=== PATIENT | male | born 1960 | race Caucasian/White ===

== ENCOUNTER 2021-02-25 12:07 | Emergency (ER) | payer BC, SELFPAY ==
--- NOTE | ~2021-02-25 | XR_ITS ---
EXAMINATION: XR forearm RT 2V DATE: 02/25/2021 13:07 INDICATION: Right forearm laceration. TECHNIQUE: 2 views of right forearm on 3 radiographs were obtained. COMPARISON: None. FINDINGS: Bone alignment is normal. No fracture. Joint spaces are normal. No elbow joint effusion. Th ere is a laceration of the posterior proximal forearm. Soft tissue gas is noted. IMPRESSION: 1. No fracture or radiopaque foreign body. Reviewed, dictated and finalized at location B.
[2021-02-25 12:20] VITALS: BP 113/72; PULSE 45; RESP 12; TEMP 36.4; O2SAT 99
--- NOTE | 2021-02-25 12:30 | ECG_ITS ---
Measurements Intervals [place] Rate: P: MD: QRS: QRSD: T: QT: QTc: Interpretive Statements SINUS BRADYCARDIA ABNORMAL ECG Electronically Signed On 02-28-2021 14:36:07 CDT by Curtis Celis D.O.
[2021-02-25] MEDS: HYDROcodone/acetaminophen (*CRX) 5-325 MG TABLET 1 TAB PO (12:41)
[2021-02-25] MEDS: Please add drug allergy info to patient profile. XX (12:48)
--- NOTE | 2021-02-25 12:51 | ED.GENADULT ---
HPI - General Adult General Chief complaint: Fall Stated complaint: fall 5 ft from ladder/arm injury Time Seen by Provider: 02/25/21 12:21 Source: patient History of Present Illness HPI narrative: Patient is a 60 y/o male complaining of right arm pain after a fall. He states that he was about 5 feet up on a ladder working on a shed. The ladder fell to the side and he fell with the ladder. His right arm was impaled by a fence. He has aching pain and rates his pain as 8/10. There is no alleviating or exacerbating factor. He denies hitting his head or passing out. He has no headache, neck pain, back pain chest pain or abdominal pain. He is not sure when he had his last Tetanus shot. Related Data Allergies Allergy/AdvReac Type Severity Reaction Status Date / Time No Known Allergies Allergy Verified 02/25/21 12:39 Review of Systems Constitutional: Constitutional: Denies chills, Denies fever(s), Denies headache(s) and Denies weakness Eyes: Eyes: Denies blurry vision ENT: Denies headache(s) and Denies neck pain Cardiovascular: Cardiovascular: Denies chest pain and Denies dyspnea Respiratory: Respiratory: Denies cough and Denies dyspnea Gastrointestinal: Gastrointestinal: Denies abdominal pain, Denies diarrhea, Denies nausea and Denies vomiting Genitourinary: Genitourinary: Denies hematuria and Denies dysuria Musculoskeletal: Musculoskeletal: Denies back pain, Denies neck pain and Reports other (right arm pain) Neurologic: Denies headache(s) and Denies weakness [facility] Social History Social History Gender identity (if verbalized by the patient): Male Exam Const: General: no acute distress and well developed Orientation/consciousness: oriented to person, oriented to place, oriented to time and patient oriented x3 HENMT: Head: normocephalic Ears: external ears normal General nose exam: Normal external nose present Eyes: General: appearance normal, both eyes and all related structures Conjunctivae: conjunctivae normal Neck: Neck: normal visual inspection and full ROM Chest: Chest palpation & inspection: normal inspection of the chest and no tenderness Resp: Effort & Inspection: normal respiratory effort Auscultation: clear to auscultation bilaterally Cardio: Rate: bradycardic Rhythm: regular rhythm GI: GI Palp: No abdominal tenderness and Yes Soft to palpation Skin: General skin exam: normal color and turgor normal Trauma: laceration (laceration on right proximal forearm and distal forearm) Neuro: General: oriented to person, oriented to place, oriented to time and patient oriented x3 Cognition (Neuro): normal cognition Extrem: General: normal to inspection, full ROM and no pedal edema Right upper extremity: elbow/forearm tenderness Psych: Appearance: grossly normal Mental Status: mental status grossly normal Affect: normal affect Course Consultations Consultation #1: Discussed with Dr. Santos (ortho), who recommend wound irrigation and closure and he will follow up. Date: 02/25/21 Time: 14:32 Vital Signs Vital signs: Vital Signs Temperature 36.4 C 02/25/21 12:20 Pulse Rate 45 L 02/25/21 12:20 Respiratory Rate 12 02/25/21 12:20 Blood Pressure 113/72 02/25/21 12:20 Pulse Oximetry 99 02/25/21 12:20 Temperature 36.4 C 02/25/21 12:20 Pulse Rate 46 L 02/25/21 15:50 Respiratory Rate 12 02/25/21 15:50 Blood Pressure 116/66 02/25/21 15:50 Pulse Oximetry 100 02/25/21 15:50 Procedures Laceration Laceration 1: Date: 02/25/21 Time: 15:10 Site: upper extremity (proximal right forearm) Side (If applicable): right Size (cm): 5 Description: stellate Depth: involves muscle layer Local Anesthetic: lidocaine 1% and with epi Amount of anesthesia used (mL): 8 Pre-repair: wound explored and irrigated ====== Skin Level ====== Skin layer closed with
[2021-02-25] MEDS: TETANUS,DIPHTHERIA,AC PERTUSSIS ADULT (0.5 ML) BOOSTRIX IM (12:52)
[2021-02-25 12:58] LABS: Anion Gap 6 mmol/L (8-16); Blood Urea Nitrogen 29 mg/dL (9-20); Calcium 9.2 mg/dL (8.4-10.2); Carbon Dioxide 26 mmol/L (22-30); Chloride 107 mmol/L (98-107); Estimated CRCL calculation 64 ml/min; Estimated Glomerular Filt Rate 56; Glucose 127 mg/dL (75-110); Potassium 3.7 mmol/L (3.4-5.0); Sodium 139 mmol/L (137-145)
[2021-02-25 12:59] LABS: Basophils Absolute Auto 0.1 K/mm3 (0.0-0.1); Basophils Percent Auto 0.9 % (0.2-1.2); Eosinophils Absolute Auto 0.1 K/mm3 (0-0.3); Eosinophils Percent Auto 1.4 % (0-4.4); Hematocrit 36.7 % (42.0-52.0); Immature Granulocyte Absolute 0.02 K/mm3 (0.00-0.031); Immature Granulocyte Percent A 0.3 % (0-0.5); Lymphocytes Absolute Auto 1.65 K/mm3 (0.9-3.2); Lymphocytes Percent Auto 25.3 % (18.3-44.2); Mean Corpuscular HGB Conc 32.7 g/dl (32-36); Mean Corpuscular Hemoglobin 26.5 pg (26-34); Mean Corpuscular Volume 81.2 fl (80-100); Mean Platelet Volume 8.9 fl (7.4-10.4); Monocytes Absolute Auto 0.7 K/mm3 (0.1-0.6); Monocytes Percent Auto 10.1 % (2.6-8.5); Neutrophils Absolute Auto 4.1 K/mm3 (1.3-6.7); Platelet Count Result 239 k/mm3 (150-375); Red Blood Count 4.52 M/mm3 (4.6-6.20); Red Cell Distribution Width 14.5 % (11.5-14.5); White Blood Count 6.5 K/mm3 (4.5-10.0)
[2021-02-25 13:09] VITALS: BP 118/73; PULSE 40; RESP 13; O2SAT 100
--- NOTE | 2021-02-25 13:11 | PC.NURSE ---
Called lab to add on TSH. spoke with Rosa Isela.
[2021-02-25] MEDS: ceFAZolin 2 GM/D5W 50 ML 2 GM/50 ML BAG IVPB (13:43)
[2021-02-25 14:52] VITALS: BP 119/64; PULSE 42; RESP 15; O2SAT 97
[2021-02-25 15:50] VITALS: BP 116/66; PULSE 46; RESP 12; O2SAT 100
== END 2021-02-25 15:54 | disposition home or self-care (01) ==
PROVIDERS: Emergency Provider Emergency Medicine
DX: S51.811A Laceration without foreign body of right forearm, initial encounter (principal); Z23 Encounter for immunization; R00.1 Bradycardia, unspecified; W11.XXXA Fall on and from ladder, initial encounter
CPT/HCPCS: 12004; 36415; 73090; 80048; 84443; 85025; 90471; 90715; 93005; 96365; 99284; A9270; J0690

== ENCOUNTER 2023-09-05 08:11 | Emergency (ER) | payer BC, SELFPAY ==
[2023-09-05 08:18] VITALS: BP 108/61; PULSE 55; RESP 18; TEMP 36.6; O2SAT 99
--- NOTE | 2023-09-05 08:46 | ED.EXTPRO ---
HPI - Extremity Problem General Chief complaint: Extremity Problem,Nontraumatic Stated complaint: right knee tenderness Time Seen by Provider: 09/05/23 08:36 Source: patient and RN notes reviewed Mode of arrival: ambulatory Limitations: no limitations History of Present Illness HPI Narrative: Patient presents today with right knee pain. States he has started experiencing occasional twinges throughout the week, but the pain has now become constant. Pain increases with flexion of the knee. He has tried ice, Excedrin, and wrapping the knee, with minimal relief. He also reports noting some swelling for the last couple of days. Denies numbness or tingling in the leg or foot. Denies any traumatic injury. 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 Related Data Allergies Allergy/AdvReac Type Severity Reaction Status Date / Time No Known Allergies Allergy Verified 09/05/23 08:16 Review of Systems Review of Systems: CONSTITUTIONAL: Denies body aches, fever, chills, or sweats. EYES: Denies visual changes, redness, or discharge. ENT: Denies rhinorrhea, congestion, sore throat, or otalgia. CARDIOVASCULAR: Denies chest pain, palpitations, or edema. RESPIRATORY: Denies cough or dyspnea. GASTROINTESTINAL: Denies abdominal pain, nausea, vomiting, or diarrhea. GENITOURINARY: Denies dysuria or hematuria. SKIN: Denies rash, itching, or wounds. MUSCULOSKELETAL: Denies back pain, or myalgia.+ right knee pain NEUROLOGIC: Denies headache, numbness, tingling, or weakness. PSYCH: Denies depression or anxiety. PMFSH Social History Social History Gender identity (if verbalized by the patient): Male Comments At time of signature, I have reviewed and agree with nursing past medical, surgical, social and family history unless otherwise noted. Please see nursing chart for further information. There is no relevant family history pertinent to the presenting complaint Exam Narrative: GENERAL: Well-appearing, well-nourished, and in no acute distress. HEAD: Normocephalic, atraumatic. EYES: EOMI. No redness or drainage. Conjunctivae normal. ENT: Mucous membranes pink and moist. NECK: Normal AROM. CHEST: No respiratory distress. EXTREMITIES: Right knee: Tenderness to the medial joint line. No tenderness laterally. No tenderness to the posterior knee. No tenderness to the patella or patellar tendon. No abnormal movement of the patella. Pain with flexion and internal rotation. Mild edema about the knee. Distal sensation intact. Capillary refill normal. Dorsiflexion and plantar flexion strong against resistance. SKIN: Warm, dry, no rash. Capillary refill normal. Normal skin turgor. NEURO: No focal deficits. Alert and oriented x3. Gait steady. PSYCH: Normal affect. No signs of depression or anxiety. Course Course Level of Care: Express Care Visit Vital Signs Vital signs: Vital Signs Temperature 98 F 09/05/23 08:18 Pulse Rate 55 L 09/05/23 08:18 Respiratory Rate 18 09/05/23 08:18 Blood Pressure 108/61 09/05/23 08:18 Pulse Oximetry 99 09/05/23 08:18 Oxygen Delivery Room Air 09/05/23 08:18 Temperature 98 F 09/05/23 08:18 Pulse Rate 55 L 09/05/23 08:18 Respiratory Rate 18 09/05/23 08:18 Blood Pressure 108/61 09/05/23 08:18 Pulse Oximetry 99 09/05/23 08:18 Oxygen Delivery Room Air 09/05/23 08:18 Reviewed MDM - Extremity (Nontraumatic) MDM Narrative Medical decision making narrative: As patient has not had a traumatic injury, x-ray is not indicated at this time. Will place patient on Medrol Dosepak to help with swelling and inflammation. Will refer him to Orthopedics for follow-up. Patient agrees with plan. Anticipatory guidance given. Differential Diagnosis Differential diagnosis: Likely other (Arthritis, ligamentous injury, meniscus injury, bursitis) Critical Care Time Critical Care Time Critical Care Time: No Discharge Ewa
== END 2023-09-05 08:55 | disposition home or self-care (01) ==
PROVIDERS: Emergency Provider Nurse Practitioner
DX: M25.561 Pain in right knee (principal); K21.9 Gastro-esophageal reflux disease without esophagitis
CPT/HCPCS: 99213; G0463

== ENCOUNTER 2025-05-24 09:57 | Outpatient (CLI) | payer MEDICARE, SELFPAY ==
--- NOTE | ~2025-05-24 | XR_ITS ---
Left Shoulder Technique: AP and axillary views were obtained. Clinical History: Pain Findings: No fracture or dislocation is seen. Osseous alignment is anatomic. The glenohumeral joint i s intact. There is mild AC joint degenerative change. Soft tissues are unremarkable. Impression: Mild AC joint degenerative change. Reviewed, dictated and finalized at location . Impression: Mild AC joint degenerative change.
== END 2025-05-24 09:58 | disposition home or self-care (01) ==
LOC: MICIMG 09:58
PROVIDERS: PCP Family Medicine; Visit Provider Family Medicine
DX: M19.012 Primary osteoarthritis, left shoulder (principal)
CPT/HCPCS: 73030

== ENCOUNTER 2025-10-25 09:58 | Outpatient (CLI) | payer MEDICARE, SELFPAY ==
--- NOTE | 2025-10-25 11:00 | NEURO_ITS ---
Impression: # Non-diabetic complains of numbness of lower extremities. ? 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 ? # Clinical correlation recommended. Nerve Conduction Studies ?Stim Site NR Peak (ms) P-T Amp (?V) Site1 Site2 Delta-P (ms) Dist (cm) Justen (m/s) Left Sup Fibular Anti Sensory (Ant Lat Mall)??? NO RESPONSE 14 cm NR 14 cm Ant Lat Mall 16.0 Right Sup Fibular Anti Sensory (Ant Lat Mall)??? NO RESPONSE 14 cm NR 14 cm Ant Lat Mall 16.0 Left Sural Anti Sensory (Lat Mall)??? NO RESPONSE Calf NR Calf Lat Mall 16.0 Right Sural Anti Sensory (Lat Mall) Calf ? 4.7 7.5 Calf Lat Mall 4.7 16.0 34 ?Stim Site NR Onset (ms) O-P Amp (mV) Site1 Site2 Delta-0 (ms) Dist (cm) Justen (m/s) Left Peroneal Motor (Vastus Med) Ankle ? 4.4 0.7 Popit Ankle 12.5 45.0 36 Popit ? 16.9 1.5 Right Peroneal Motor (Vastus Med) Ankle ? 4.2 2.5 Popit Ankle 12.1 45.0 37 Popit ? 16.3 2.0 Left Tibial Motor (Abd Bird Brev) Ankle ? 4.1 0.3 Knee Ankle 15.1 47.0 31 Knee ? 19.2 0.1 Right Tibial Motor (Abd Bird Brev) Ankle ? 4.1 1.6 Knee Ankle 15.3 47.0 31 Knee ? 19.4 0.8 F Wave Studies ?NR F-Lat (ms) L-R F-Lat (ms) Left Peroneal (Mrkrs) (EDB)??? NO RESPONSE ? 69.83 0.00 Right Peroneal (Mrkrs) (EDB) ? 69.83 0.00 Left Tibial (Mrkrs) (Abd Hallucis) ? 54.34 3.63 Right Tibial (Mrkrs) (Abd Hallucis) ? 57.97 3.63 Electromyography ?Side Muscle Nerve Root Ins Act Fibs Amp Dur Recrt Comment Right AntTibialis Dp Br Fibular L4-5 Nml Nml Decr >12ms +1 Left AntTibialis Dp Br Fibular L4-5 Nml Nml Decr >12ms +1 Right Ext Dig Brev Dp Br Fibular L5, S1 Nml Nml Decr >12ms +2 Left Ext Dig Brev Dp Br Fibular L5, S1 Nml Nml Decr >12ms +2 Right Fibularis Long Sup Br Fibular L5-S1 Nml Nml Decr >12ms +1 Left Fibularis Long Sup Br Fibular L5-S1 Nml Nml Decr >12ms +1 Right Flex Dig Long Tibial L5-S2 Nml Nml Decr >12ms +1 Left Flex Dig Long Tibial L5-S2 Nml Nml Decr >12ms +1 Right Gastroc Tibial S1-2 Nml Nml Decr >12ms +1 Left Gastroc Tibial S1-2 Nml Nml Decr >12ms +1 Right QuadratusFem QuadFemoris L4-5, S1 Nml Nml Nml Nml Nml Left QuadratusFem QuadFemoris L4-5, S1 Nml Nml Nml Nml Nml
--- OUTSIDE RECORDS SUMMARY | 2025-10-25 11:28 | XMS_ITS | Encounter Summary ---
Author Organization [facility] Address 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
--- OUTSIDE RECORDS SUMMARY | 2025-10-25 11:28 | XMS_ITS | Encounter Summary ---
Author Organization [facility] Address [address] [place] [address] Care Team Providers Care Distributor Operator Name Role Phone Juan Barrios MD Primary Care Provider Encounter Details Date Type Department Care Team (Late st Contact Info) Description 06/16/2000 Outpatient Historical [facility] [address] [place] [address] Roger Vanessa MD [address] [facility] [address] [id number] Social History Tobacco Use Types Packs/Day Years Used Date Smoking Tobacco: Never Assessed Sex and Gender Information Value Date Recorded Sex Assigned at Not on file 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 [place] [address] PCP - General Internal Medicine 09/13/20 08/27/25 documented as of this encounter
--- OUTSIDE RECORDS SUMMARY | 2025-10-25 11:28 | XMS_ITS | Encounter Summary ---
Author Organization [facility] Address 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 [address] [place] [address] PCP - General Internal Medicine 09/13/20 08/27/25 documented as of this encounter
--- OUTSIDE RECORDS SUMMARY | 2025-10-25 11:28 | XMS_ITS | Patient Health Record ---
Author Organization [facility] Address [address] [facility] [address] [facility] [address] [place] [address] Care Team Providers Care Business Risk Analyst Name Role Phone Roger Vanessa MD Primary Care Provider Munir Durand Unavailable [phone] Reason For Referral No Information Plan Of Treatment No Information Insurance Providers Payer Name Payer Address Payer Phone Subscriber Number Group Number Insured Name Patient Relationship to Insured Coverage Start Date Coverage End Date Blue Access Choice PPO E2 [address] [place] [address] [id number] Andrea Marrufo Self - patient is the insured
--- OUTSIDE RECORDS SUMMARY | 2025-10-25 11:29 | XMS_ITS | Encounter Summary ---
Author Organization [facility] Address [address] [place] [address] Care Team Providers Care Terminal Gauger Supervisor Name Role Phone Juan Barrios MD Primary Care Provider Encounter Details Date Type Department Care Team (Late st Contact Info) Description 08/09/2001 Outpatient Historical [facility] Primary Care - [facility] [address] [facility] [address] [place] [address] Chilango Castillo MD [address] [place] [id number] Social History Tobacco Use Types Packs/Day Years Used Date Smoking Tobacco: Never Assessed Sex and Gender Information Value Date Recorded Sex Assigned at Not on file 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 [place] [address] PCP - General Internal Medicine 09/13/20 08/27/25 documented as of this encounter
--- OUTSIDE RECORDS SUMMARY | 2025-10-25 11:29 | XMS_ITS | Encounter Summary ---
Author Organization [facility] Address [address] [place] [address] Care Team Providers Care Burglar Alarm Inspector Name Role Phone Juan Barrios MD Primary Care Provider Encounter Details Date Type Department Care Team (Late st Contact Info) Description 10/23/2006 Outpatient Historical [facility] [address] 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 [place] [phone] PCP - General Internal Medicine 09/13/20 08/27/25 documented as of this encounter
--- OUTSIDE RECORDS SUMMARY | 2025-10-25 11:29 | XMS_ITS | Clinical Summary ---
Author Organization [facility] eres Address [address] [place] [address] Care Team Providers Care Associate Veterinarian Name Role Phone Unavailable Primary Care Provider Unavailabl e Allergies Active Allergy Reactions Criticality Noted Date Comments No Known Allergies 05/07/2004 Medications omega-3 fatty acids-fish oil 300-1,000 mg Capsule Take 1 Capsule by mouth daily. Active omeprazole magnesium (PriLOSEC) 20 mg Tablet, Delayed Release (E.C.) Take 20 mg by mouth daily. 10/09/2020 Active Active Problems Problem Noted Date Diagnosed Date Gastroesophageal reflux dise ase with esophagitis without hemorrhage 10/09/2020 Overview (10/09/2020): EGD done 09/2020 with esophageal dilation and esophagitis. PPI 20 mg QD Neck pain 04/15/2013 Insomnia 04/15/2013 DDD (degenerative disc disease), lumbar 04/12/20 10 Resolved Problems Problem Noted Date Diagnosed Date Resolved Date Routine general medical exam ination at a health care facility 09/06/2018 09/13/2020 Blood in stool 08/04/2017 09/13/2020 Skin lesion 01/20/2017 10/08/2020 Need for prophylactic vaccin ation with tetanus-diphtheria (Td) 03/03/2008 04/12/2010 Encounters Date Type Department Care Team Description 08/30/2025 External Device Data ST[facility] ABSTRACTION Provider, Abstract from Last 3 Months Immunizations Immunization Administration Dates Next Due (ADACEL/BOOSTRIX)(10 YR UP) TDAP VACCINE, 0.5ML, IM 03/03/2008 (COMRINATY)(12YR UP) COVID-1 9 VACCINE, MRNA (PF)30 MCG/0.3 ML, IM SYRINGE 08/22/2024 (PFIZER)(12 YR UP) COVID-19 VACCINE - EMERGENCY USE AUTHORIZATION, MRNA, [id number](PF) 30 MCG/0.3 ML IM SUSP 03/14/2021,02/19/2021 (Pfizer Bivalent)(12 Yr Up) COVID-19 Vaccine - Emergency Use Authorization, MRNA, Lnp-S(Pf) 30 Mcg/0.3 Ml Susp 08/12/2022 INFLUENZA VACCINE QUADRIVALE NT 3 YR UP PF IM 08/04/2017 INFLUENZA VACCINE QUADRIVALE NT 6 MOS UP PF IM 09/16/2021,09/13/2020,09/06/2018 INFLUENZA VACCINE TRIVALENT SPLIT VIRUS, (6 MOS UP), 0.5ML (PF), IM 08/22/2024 Influenza Seasonal Unspecifi ed Formulation IM 08/12/2022 Family History Medical History Relation Name Comments Healthy Brother Healthy Daughter 1 Healthy Daughter 2 Cancer Father Charlie Marrufo bladder cancer Heart Disease Father Charlie Marrufo Dementia Other Mother Araceli Marrufo parkinson 's symptoms with some paralysis Thyroid Disease Mother Araceli Marrufo Respiratory Disease Paternal Grandfather Dave Marrufo COPD, smoker Healthy Sister 1 Breast Cancer Sister 2 Zeina Simpson breast ca at 52yo Healthy Son Colon Cancer Neg Hx Relation Name Status Comments Brother Alive Daughter 1 Alive Daughter 2 Alive Father Charlie Marrufo Alive Mother Araceli Marrufo Paternal Grandfather Dave Marrufo Sister 1 Alive Sister 2 Zeina Simpson Alive Son Alive Social History Tobacco Use Types Packs/Day Years Used Date Smoking Tobacco: Never Smokeless Tobacco: Never Tobacco Cessation:Counseling Given: Not Answered Alcohol Use Standard Drinks/Week Comments Yes 6 (1 standard drink = 0.6 oz pur e alcohol) occ Feeling Safe Answer Date Recorded Are you in a relationship wi th someone who hurts you emotionally and/or physically? 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 WORKER Gender Identity Not on file Sexual Orientation Not on file Last Filed Vital Signs Vital Sign Reading Time Taken Comments Blood Pressure 138/88 08/22/2024 12:36 PM CDT Pulse 48 08/22/2024 12:14 PM CDT Temperature 36.7 C (98 F) 08/22/2024 12:14 PM CDT Respiratory Rate 18 09/24/2023 8:34 AM WILLOW WORKER Oxygen Saturation 98% 08/22/2024 12:14 PM CDT Inhaled Oxygen Concentration - - Weight 98.9 kg (218 lb) 08/22/2024 12:14 PM CDT Height 188 cm (6' 2) 08/22/2024 12:14 PM CDT Body Mass Index 27.99 08/22/2024 12:14 PM CDT Plan of Treatment Health Maintenance Due Date Last Done Comments FIT-DNA Q 3 years 2004 FIT/FOBT Q 1 year 2004 Flex Sig/CT Colonography Q 5 years 2004 PNEUMOCOCCAL VACCINE 50+ YEA RS (1 of 1 - PCV) 2009 ZOSTER VACCINE (1 of 2) 2009 DTAP/TDAP/TD VACCINES (2 - T d or Tdap) 03/03/2018 03/03/2008 INFLUENZA VACCINE (#1) 2025 , 08/12/2022, 09/16/2021, Additional history exists COVID-19 Vaccine (2024-2 6 season) 2025 08/22/2024, 08/12/2022, 03/14/2021, Additional history exists COLORECTAL SCREENING 09/24/2030 09/24/2023, 09/24/2023, 06/15/2018, Additional history exists Colorectal Cancer Screening 09/24/2030 RSV VACCINE (60+ or ) (1 - 1-dose 75+ series) 2034 Procedures Procedure Name Priority Date/Time Associated Diagnosis Comments COLONOSCOPY REPORT 09/24/2023 8: 16 AM WILLOW WORKER from Last 3 Months or Most Recently Relevant to Health Maintenance Results * COLONOSCOPY REPORT (09/24/2023 8:16 AM WILLOW WORKER) Narrative Procedure Note Shea Bowers MD - 09/24/2023 8:16 AM CST [facility] Endoscopy Patient Name: Andrea Marrufo Procedure Date: 09/24/2023 Date of : 1960 Attending MD: Shea Bowers MD, Procedure: Colonoscopy Indications: High risk colon cancer surveillance: Personal history of colonic polyps Providers: Shea Bowers MD Referring MD: Juan Barrios MD Medicines: Monitored Anesthesia Care Complications: No immediate complications. Procedure: Informed consent was obtained for the procedure, including moderate sedation after risks were discussed. Based on the pre-procedure assessment, including review of the patient's medical history, medications, allergies, and review of systems, the patient was deemed to be an appropriate candidate for sedation. A timeout was performed. Continuous ECG monitoring, pulse oximetry, blood pressure monitoring, and direct observation were performed. The Colonoscope was introduced through the anus and advanced to the cecum, identified by appendiceal orifice and ileocecal valve. The colonoscopy was performed without difficulty. The patient tolerated the procedure well. The quality of the bowel preparation was good. The ileocecal valve, appendiceal orifice, and rectum were photographed. Estimated Blood Loss: Estimated blood loss was minimal. Findings: A 3 mm polyp was found in the ascending colon. The polyp was sessile. The polyp was removed with a jumbo cold forceps. Resection and retrieval were complete. External and internal hemorrhoids were found during retroflexion. Impression: - One 3 mm polyp in the ascending colon, removed with a jumbo cold forceps. Resected and retrieved. - External and internal hemorrhoids. Recommendation: - Patient has a contact number available for emergencies. The signs and symptoms of potential delayed complications were discussed with the patient. Return to normal activities tomorrow. Written discharge instructions were provided to the patient. - Resume previous diet. - Continue present medications. - Await pathology results. - Repeat colonoscopy is recommended for surveillance. The colonoscopy date will be determined after pathology results from today's exam become available for review. - Return to referring physician as previously scheduled. Shea Bowers MD 09/24/2023 8:14:33 AM This report has been signed electronically. Number of Addenda: [address]; [place] [address] Shea Bowers MD GI PROCEDURE ORDERABLES Final Result from Last 3 Months or Most Recently Relevant to Health Maintenance Insurance [facility] [employer] ACCESS CHOICE Advance Directives For more information, please contact: [phone] * Full Code (Latest Code Status on File) Date Activated Date Inactivated Comments 09/24/2023 6:57 AM 09/24/2023 10:49 AM * Full Code Date Activated Date Inactivated Comments 10/08/2020 11:43 AM 10/08/2020 2:57 PM * Full Code Date Activated Date Inactivated Comments 06/15/2018 6:39 AM 06/15/2018 9:50 AM
--- OUTSIDE RECORDS SUMMARY | 2025-10-25 11:29 | XMS_ITS | Encounter Summary ---
Author Organization [facility] Address 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 [place] [phone] PCP - General Internal Medicine 09/13/20 08/27/25 documented as of this encounter
--- OUTSIDE RECORDS SUMMARY | 2025-10-25 11:29 | XMS_ITS | Encounter Summary ---
Author Organization [facility] Address [address] [place] [address] Care Team Providers Care Frame Aligner Name Role Phone Juan Barrios MD Primary Care Provider Encounter Details Date Type Department Care Team (Latest Contact Info) Description 05/07/2009 Outpatient Historical [facility] Ruddy Martinez MD NO ADDRESS ON FILE Special Screening for Malignant Neoplasms, Colon Social History Tobacco Use Types Packs/Day Years Used Date Smoking Tobacco: Never Alcohol Use Standard Drinks/Week Comments Yes 2.5 (1 standard drink = 0.6 oz p ure alcohol) Sex and Gender Information Value Date Recorded Sex Assigned at Not on file Legal Sex Male 3:32 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 [place] [phone] PCP - General Internal Medicine 09/13/20 08/27/25 documented as of this encounter
--- OUTSIDE RECORDS SUMMARY | 2025-10-25 11:29 | XMS_ITS | Encounter Summary ---
Author Organization [facility] Address 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 [place] [phone] PCP - General Internal Medicine 09/13/20 08/27/25 documented as of this encounter
--- OUTSIDE RECORDS SUMMARY | 2025-10-25 11:29 | XMS_ITS | Encounter Summary ---
Author Organization [facility] Address 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 Gender Identity Not on file Sexual Orientation Not on file documented as of this encounter Plan of Treatment Not on file documented as of this encounter Procedures Procedure Name Priority Date/Time Associated Diagnosis Comments HEMOGLOBIN AND HEMATOCRIT Routine 10/23/2006 5:54 AM MEASURING MACHINE TENDER documented in this encounter Results * HEMOGLOBIN AND HEMATOCRIT (10/23/2006 5:54 AM MEASURING MACHINE TENDER) HEMOGLOBIN 15.8 13.6 - 16.5 g/dL INTERFACE SYSTEM HEMATOCRIT 43.5 40.0 - 48.0 % INTERFACE SYSTEM 10/23/2006 5:54 AM MEASURING MACHINE TENDER us G Yuriy Barboza MD HEMATOLOGY ORDERABLES Final Result INTERFACE SYSTEM Refer to clinic/hospital department documented in this encounter Visit Diagnoses Diagnosis Discontinuity or dislocation of ear ossicles- Primary documented in this encounter Care Teams Acute Care Nursing Assistant Relationship Specialty Start Date End Date Juan Barrios MD [address] [place] [address] PCP - General Internal Medicine 09/13/20 08/27/25 documented as of this encounter
--- OUTSIDE RECORDS SUMMARY | 2025-10-25 11:29 | XMS_ITS | Encounter Summary ---
Author Organization [facility] Address 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 [place] [phone] PCP - General Internal Medicine 09/13/20 08/27/25 documented as of this encounter
--- OUTSIDE RECORDS SUMMARY | 2025-10-25 11:29 | XMS_ITS | Encounter Summary ---
Author Organization [facility] Address 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 [place] [phone] PCP - General Internal Medicine 09/13/20 08/27/25 documented as of this encounter
--- OUTSIDE RECORDS SUMMARY | 2025-10-25 11:29 | XMS_ITS | Encounter Summary ---
Author Organization [facility] Address [address] [place] [address] Care Team Providers Care Rent Control Office Manager Name Role Phone Juan Barrios MD Primary Care Provider Encounter Details Date Type Department Care Team (Latest Contact Info) Description 04/11/2009 Outpatient Historical [facility], [address] Lauren Little NP NO ADDRESS ON FILE Routine General Medical Examination at a Health Care Facility Social History Tobacco Use Types Packs/Day Years Used Date Smoking Tobacco: Never Alcohol Use Standard Drinks/Week Comments Yes 2.5 (1 standard drink = 0.6 oz p ure alcohol) Sex and Gender Information Value Date Recorded Sex Assigned at Not on file Legal Sex Male 3:32 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 [place] [phone] PCP - General Internal Medicine 09/13/20 08/27/25 documented as of this encounter
--- OUTSIDE RECORDS SUMMARY | 2025-10-25 11:29 | XMS_ITS | Encounter Summary ---
Author Organization [facility] Address [address] [place] [address] Care Team Providers Care Pipe Stem Sawyer Name Role Phone Juan Barrios MD Primary Care Provider Encounter Details Date Type Department Care Team (Latest Contact Info) Description 03/03/2008 Outpatient Historical [facility] Internal Medicine [facility] [address] [place] [address] Ruddy Martinez MD NO ADDRESS ON FILE Routine General Medical Examination at a Health Care Facility Social History Tobacco Use Types Packs/Day Years Used Date Smoking Tobacco: Never Assessed Sex and Gender Information Value Date Recorded Sex Assigned at Not on file Legal Sex Male 3:32 AM FUDGER Gender Identity Not on file Sexual Orientation Not on file documented as of this encounter Plan of Treatment Not on file documented as of this encounter Procedures Procedure Name Priority Date/Time Associated Diagnosis Comments URINALYSIS WITH REFLEX CULTURE Routine 03/03/2008 9:26 AM CDT CBC WITH DIFFERENTIAL Routine 03/03/2008 9:26 AM CDT URINALYSIS W/REFLEX MICROSCOPIC Routine 03/03/2008 9:26 AM CDT TSH Routine 03/03/2008 9:26 AM CDT PSA Routine 03/03/2008 9:26 AM CDT LIPID PANEL Routine 03/03/2008 9:26 AM CDT COMPREHENSIVE METABOLIC PANEL Routine 03/03/2008 9:26 AM CDT documented in this encounter Results * (ABNORMAL) URINALYSIS (03/03/2008 9:26 AM CDT) COLOR UA Yellow [facility] NITRITE UA Negative Negative [facility] UROBILINOGEN UA 2(H) <=1 mg/dL [facility] PH UA 7.0 5.0 - 8.0 [facility] KETONES UA Negative Negative [facility] CLARITY UA Clear Clear [facility] BILIRUBIN UA Negative Negative [facility] PROTEIN UA Negative Negative [facility] LEUKOCYTE ESTERASE UA Negative Negative [facility] SPECIFIC GRAVITY UA 1.021 1.001 - 1.035 [facility] GLUCOSE UA Negative Negative [facility] BLOOD UA Negative Negative [facility] 03/03/2008 9:26 AM CDT 03/03/2008 11:10 AM CDT us Ruddy Martinez MD URINE ORDERABLES Final Result [facility] [address] [place] [address] * (ABNORMAL) CBC WITH DIFFERENTIAL (03/03/2008 9:26 AM CDT) WBC 4.1 4.0 - 9.8 K/uL [facility] MCH 30.8 27.2 - 32.6 pg [facility] MPV 10.2 9.3 - 12.4 fL [facility] HEMATOCRIT 43.0 40.0 - 48.0 % [facility] RDW-STDEV 40.8 37.1 - 48.7 fL [facility] RBC 4.96 4.50 - 5.40 M/uL [facility] MCHC 35.6(H) 31.5 - 35.5 % [facility] MCV 86.7 82.0 - 99.0 fL [facility] PLATELETS 206 140 - 350 K/uL [facility] HEMOGLOBIN 15.3 13.6 - 16.5 g/dL [facility] RDW 13.0 11.5 - 14.5 % [facility] LYMPHOCYTES 30 16 - 45 % [facility] LYMPHOCYTE ABSOLUTE 1.20 0.70 - 4.50 K/uL [facility] BASOPHILS 1 0 - 2 % [facility] BASOPHILS ABSOLUTE 0.04 0.00 - 0.20 K/uL [facility] MONOCYTES 7 3 - 13 % [facility] MONOCYTE ABSOLUTE 0.28 0.10 - 1.30 K/uL [facility] NEUTROPHILS 61 45 - 70 % [facility] NEUTROPHIL ABSOLUTE 2.48 1.90 - 7.00 K/uL [facility] EOSINOPHILS 2 0 - 7 % [facility] EOSINOPHIL ABSOLUTE 0.06 0.00 - 0.70 K/uL [facility] Blood specimen (specimen) 03/03/2008 9:26 AM CDT 03/03/2008 11:10 AM CDT us Ruddy Martinez MD HEMATOLOGY ORDERABLES Edited INTERFACE SYSTEM Refer to clinic/hospital department [facility] [address] [place] [address] * URINALYSIS WITH REFLEX CULTURE (03/03/2008 9:26 AM CDT) URINE CULTURE ORDER Not indicated [facility] Comment: Criteria for a reflex culture include one or more of the following: Abnormal nitrite, leukocyte esterase, WBCs or RBCs. Lack of qualifying criteria does not exclude the possiblity of a urinary tract infection. Dilute urine, drug interference, etc. may decrease the sensitivity of the criteria analytes. Urine specimen (specimen) 03/03/2008 9:26 AM CDT 03/03/2008 11:10 AM CDT Ruddy Martinez MD URINE ORDERABLES Final Result Performing Organization Address [facility] Co de Phone Number [facility] [address] [place] [address] * TSH (03/03/2008 9:26 AM CDT) [facility] TSH 1.88 0.27 - 4.20 uU/mL [facility] Blood specimen (specimen) 03/03/2008 9:26 AM CDT 03/03/2008 11:08 AM CDT Ruddy Martinez MD CHEMISTRY ORDERABLES Edited Performing Organization Address [facility] Co de Phone Number [facility] [address] [place] [address] * (ABNORMAL) COMPREHENSIVE METABOLIC PANEL (03/03/2008 9:26 AM CDT) [facility] GLUCOSE 93 65 - 99 mg/dL [facility] AST 21 12 - 38 U/L [facility] BUN 24(H) 6 - 20 mg/dL [facility] CALCIUM 8.5 8.4 - 10.2 mg/dL [facility] CHLORIDE 103 96 - 108 mmol/L [facility] ALBUMIN 4.3 3.4 - 4.8 g/dL [facility] CREATININE 1.07 0.67 - 1.17 mg/dL [facility] SODIUM 139 135 - 145 mmol/L [facility] ALT 13 0 - 41 U/L [facility] ALKALINE PHOSPHATASE 57 40 - 129 U/L [facility] BILIRUBIN TOTAL 1.5(H) 0.2 - 1.0 mg/dL [facility] CO2 28 22 - 30 mmol/L [facility] TOTAL PROTEIN 6.9 6.3 - 8.6 g/dL [facility] POTASSIUM 4.3 3.5 - 4.9 mmol/L [facility] GFR, >60 >=60 mL/min/1. 7 sq meter [facility] GFR >60 >=60 mL/min/1. 7 sq meter [facility] Comment: Estimated GFR rate interpretative information for both Americans and non- Americans is available on the [facility] Intranet at: [email or web address] Select: Lab Policies and Procedures Select: Reference Ranges - GFR Blood specimen (specimen) 03/03/2008 9:26 AM CDT 03/03/2008 11:08 AM CDT us Ruddy Martinez MD CHEMISTRY ORDERABLES Edited [facility] [address] [facility] [address] [place] [address] * LIPID PANEL (03/03/2008 9:26 AM CDT) CHOLESTEROL 117 100 - 199 mg/dL [facility] CHOL/HDL RATIO 2.1 2.0 - 5.0 [facility] TRIGLYCERIDE 56 10 - 149 mg/dL [facility] HDL 56 40 - 59 mg/dL [facility] LDL CALCULATED 50 <=99 mg/dL [facility] LIPID PANEL COMMENT See Below [facility] Comment: The adult ATP and pediatric NCEP classifications for lipids are available on the [facility] Intranet at: [email or web address] Select: Lab Policies and Procedures,Current Select: Lipid Panel Interpretation Blood specimen (specimen) 03/03/2008 9:26 AM CDT 03/03/2008 11:08 AM CDT Ruddy Martinez MD CHEMISTRY ORDERABLES Edited Performing Organization Address City/[facility]/ZIP Co de Phone Number [facility] [address] [place] [address] * PSA (03/03/2008 9:26 AM CDT) PSA 0.3 0.0 - 4.0 ng/mL [facility] Comment:Performed on [employer] E170 System Blood specimen (specimen) 03/03/2008 9:26 AM CDT 03/03/2008 11:08 AM CDT Ruddy Martinez MD CHEMISTRY ORDERABLES Edited [facility] [address] [place] [address] documented in this encounter Visit Diagnoses Diagnosis Routine general medical examination at a health care facility documented in this encounter Care Teams Pipe Stem Sawyer Relationship Specialty Start Date End Date Juan Barrios MD [address] [place] [address] PCP - General Internal Medicine 09/13/20 08/27/25 documented as of this encounter
--- OUTSIDE RECORDS SUMMARY | 2025-10-25 11:29 | XMS_ITS | Encounter Summary ---
Author Organization [facility] Address 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 [place] [phone] PCP - General Internal Medicine 09/13/20 08/27/25 documented as of this encounter
--- OUTSIDE RECORDS SUMMARY | 2025-10-25 11:29 | XMS_ITS | Encounter Summary ---
Author Organization [facility] Address 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 [place] [phone] PCP - General Internal Medicine 09/13/20 08/27/25 documented as of this encounter
--- OUTSIDE RECORDS SUMMARY | 2025-10-25 11:29 | XMS_ITS | Encounter Summary ---
Author Organization [facility] Address 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 [place] [phone] PCP - General Internal Medicine 09/13/20 08/27/25 documented as of this encounter
== END 2025-10-25 09:59 | disposition home or self-care (01) ==
PROVIDERS: PCP Family Medicine; Visit Provider Family Medicine
DX: R20.2 Paresthesia of skin (principal); R20.0 Anesthesia of skin
CPT/HCPCS: 95886; 95910